=== PATIENT | male | born 1975 | race Caucasian/White ===

== ENCOUNTER → 2022-02-21 11:53 | Outpatient (CLI) | payer OTHER, SELFPAY ==
--- NOTE | ~2022-02-21 | XR_ITS ---
EXAMINATION: CT abdomen pelvis wo con, XR abdomen/kub 1V DATE: 02/21/2022 12:09 INDICATION: Left ureteral stone TECHNIQUE: 1. Computed tomography (CT) of the abdomen and pelvis was performed without intravenous contrast. Aut omated exposure control and iterative reconstruction technique were employed. The dose-length product was 278.09 mGy-cm. 2. AP view of the abdomen and pelvis was obtained. COMPARISON: None FINDINGS: CT: Mild bibasilar atelectasis in the lower lobes. Heart size is normal. No pericardial or pleural effusi on. A couple subcentimeter low-attenuation hepatic cysts. Gallbladder, spleen, pancreas and bilateral adrenal glands are normal. 3 to 4 mm obstructing stone at the distalmost left ureter near the ureter ovesicular junction with mild left hydroureteronephrosis. No other urolithiasis. Right kidney and ure ter are normal. Bladder is normal. Bowels including the appendix are normal. No free intraperitoneal gas or fluid. No pathologically enlarged abdominal or pelvic lymphadenopathy. Bones are unremarkable. KUB: The stone at the distal left ureter is clearly visualized in the pelvis projecting along the lateral margin of the inferior sacrum. In addition there are few phleboliths in the pelvis. IMPRESSION: 1. Obstructing 3 to 4 mm stone at the distalmost left ureter with mild left hydroureteronephrosis. Reviewed, dictated and finalized at location B. IMPRESSION: 1. Obstructing 3 to 4 mm stone at the distalmost left ureter with mild left hyd roureteronephrosis.
== END ==
PROVIDERS: Visit Provider Urology
DX: N20.1 Calculus of ureter (principal)
CPT/HCPCS: 74018; 74176

== ENCOUNTER 2022-03-17 00:06 | Day surgery (SDC) | payer OTHER, SELFPAY ==
[2022-03-04 11:47] VITALS: BMI 24.3
--- NOTE | 2022-03-14 11:52 | PM.HPGS ---
History of Present Illness History of Present Illness Consent: Risks, benefits, and alternatives have been discussed and questions answered. Patient agrees to proceed with procedure. Chief complaint: abnormal CT scan Narrative: Jesus Beltre is a 46 year old male Who was recently diagnosed with left kidney stone and incidentally found diffuse wall thickening with pericolonic fat stranding in the descending colon on CT scan. At the time of his ER visit he he was having left-sided abdominal pain that he related to his kidney stone. Review of Systems Review of Systems: All systems reviewed & are unremarkable except as noted in HPI and below PMFSH Past Medical History Medical History Stroke TIA (transient ischemic attack) Tobacco abuse Social History Social History Smoking packs per day: 1.5 Smoking cigarettes per day: 30.0 Years smoked: 25 Smoking pack-years: 37.50 Smoking status: Current every day smoker Tobacco type: cigarettes Alcohol intake: current Drinks per week: 1 Substance use: never Substance use type: does not use Living arrangements: with family Spiritual care concerns: No Meds Home Medications and Allergies Home Medications Medication Instructions Recorded Confirmed Type No Home Medications 02/21/22 03/17/22 History Allergies Allergy/AdvReac Type Severity Reaction Status Date / Time No Known Allergies Allergy Verified 03/17/22 12:10 Exam Const: General: alert Orientation/consciousness: patient oriented x3 Resp: Auscultation: clear to auscultation bilaterally Cardio: Rhythm: regular rhythm GI: GI Palp: Yes Soft to palpation and No Tenderness to palpation present (GI) Neuro: General: patient oriented x3 Assessment and Plan Assessment and plan (1) Abnormal CT scan, gastrointestinal tract: Code(s): R93.3 - Abnormal findings on diagnostic imaging of other parts of digestive tract Status: Acute Assessment and Plan: Colonoscopy with possible biopsy or polypectomy or cautery or injection of substances.
--- NOTE | 2022-03-17 10:36 | WPDANESEPPF ---
Anes - Initial Pre Proc Eval Procedure: Operation Date: 03/17/22 13:30 Proposed Procedures p Colonoscopy - Ran Guallpa MD Date/Time: 03/17/22 10:36 Surgeon: Ran Guallpa MD Pre Op Diagnosis: abnormal CT scan Patient Data Age: 46 Gender: M Height: 1.78 m Weight: 77 kg Allergies Allergy/AdvReac Type Severity Reaction Status Date / Time No Known Allergies Allergy Verified 03/17/22 12:10 Home Medications Medication Instructions Recorded Confirmed Type No Home Medications 02/21/22 03/17/22 History Patient hx anesthesia problems: none Family hx anesthesia problems: none Results Review: All pre-operative results and documents have been reviewed as part of the pre-operative evaluation. [facility] Past Medical History Medical History (Updated 03/17/22 @ 10:37 by Juan Manuel Odonnell MD) Stroke TIA (transient ischemic attack) Tobacco abuse Social History Social History (Updated 02/21/22 @ 10:09 by Angel Smith) Smoking packs per day: 1.5 Smoking cigarettes per day: 30.0 Years smoked: 25 Smoking pack-years: 37.50 Smoking status: Current every day smoker Tobacco type: cigarettes Alcohol intake: current Drinks per week: 1 Substance use: never Substance use type: does not use Living arrangements: with family Spiritual care concerns: No Anes - Eval Final PreProcedure Day of Procedure 03/17/22 10:36 Patient weight: normal Heart: regular rate and rhythm Lungs: clear to auscultation and normal air movement Airway: Mallampati scale class II Neurological: alert and oriented Last oral intake: >/= 8 hours ASA classification: III Emergent: no Anesthetic plan: proceed Anesthesia type and monitoring: general GIVS Results Review: All pre-operative results and documents have been reviewed as part of the pre-operative evaluation. Informed Consent: The patient's anesthetic plan and its attendant risks and benefits were discussed with the patient/family/POA. Questions were solicited and answers provided to the satisfaction of the patient/family/POA.
[2022-03-17 12:05] VITALS: BP 123/76; PULSE 77; RESP 18; TEMP 36.9; O2SAT 99; BMI 24.7
[2022-03-17] MEDS: LACTATED RINGERS 1,000 ML 150 ML IV CONT (12:18)
[2022-03-17] MEDS: SIMETHICONE ORAL SUSPENSION 20 MG/0.3 ML 30 ML BOTTLE 0.6 ML IRRIGATION (12:58)
[2022-03-17 13:09] VITALS: BP 100/71; PULSE 76; RESP 18; O2SAT 100
[2022-03-17 13:19] VITALS: BP 103/74; PULSE 69; RESP 24; O2SAT 98
[2022-03-17 13:29] VITALS: BP 115/74; PULSE 70; RESP 20; O2SAT 98
== END 2022-03-17 13:38 | disposition home or self-care (01) ==
PROVIDERS: Visit Provider Internal Medicine Gastroenterology
PROC: 0DJD8ZZ Inspection of Lower Intestinal Tract, Via Natural or Artificial Opening Endoscopic (ICD-10-PCS; CPT 45378; principal; 2022-03-17 13:30)
DX: D12.5 Benign neoplasm of sigmoid colon (principal); Z86.73 Personal history of transient ischemic attack (TIA), and cerebral infarction without residual deficits; F17.210 Nicotine dependence, cigarettes, uncomplicated
CPT/HCPCS: 45380; 88305; J2704; J7120